=== PATIENT | female | born 1955 | race Caucasian/White ===

== ENCOUNTER 2020-08-31 14:55 | Emergency (ER) | payer OTHER ==
[~2020-08-31] VITALS: Ht 160 cm; Wt 83.5 kg
[2020-08-31] MEDS ORDERED: CATAPRES0.2 MG (15:17)
[2020-08-31] MEDS ORDERED: CARVEDILOL12.5 MG (15:18)
[2020-08-31] MEDS ORDERED: LIPITOR40 MG (15:18)
[2020-08-31] MEDS ORDERED: XARELTO15 MG (15:18)
[2020-08-31] MEDS ORDERED: NORVASC5 MG (15:18)
[2020-08-31] MEDS ORDERED: SINGULAIR10 MG (15:19)
[2020-08-31] MEDS ORDERED: VOLTAREN100 GM (15:19)
== END 2020-08-31 19:05 | disposition home or self-care (01) ==
LOC: ER 14:55
DX: M54.16 Radiculopathy, lumbar region (principal); M54.5 Low back pain